=== PATIENT | female | born 1945 | race Caucasian/White ===

== ENCOUNTER 2021-06-01 18:01 | Inpatient (IN) | payer MEDICARE ==
[~2021-06-01] VITALS: Ht 162.6 cm; Wt 72.6 kg
[2021-06-01 18:40] LABS: HEMOGLOBIN 12.7 gm/dl (12.3-15.3); RED BLOOD COUNT 4.37 M/UL (4.00-5.10); WHITE BLOOD COUNT 15.8 K/UL (4.5-11.0)
[2021-06-02 04:49] LABS: HEMOGLOBIN 11.1 gm/dl (12.3-15.3); WHITE BLOOD COUNT 13.2 K/UL (4.5-11.0)
[2021-06-02 04:54] LABS: RED BLOOD COUNT 3.93 M/UL (4.00-5.10)
[2021-06-02 05:29] LABS: BUN/CREATININE RATIO 44 (0-10)
[2021-06-02 10:11] LABS: BUN/CREATININE RATIO 43 (0-10)
[2021-06-02 12:06] LABS: CANDIDA ALBICANS Not Detected (Negative); CANDIDA KRUSEI Not Detected (Negative); CANDIDA TROPICALIS Not Detected (Negative); ENTEROCOCCUS Not Detected (Negative); ESCHERICHIA COLI Not Detected (Negative); HAEMOPHILUS INFLUENZAE Not Detected (Negative); KLEBSIELLA OXYTOCA Not Detected (Negative); KPC-CARBAPENEM-RESISTANCE GENE Not Detected (Negative); PROTEUS Not Detected (Negative); PSEUDOMONAS AERUGINOSA Not Detected (Negative); SERRATIA MARCESANS Not Detected (Negative); STAPHYLOCOCCUS Not Detected (Negative); STAPHYLOCOCCUS AUREUS Not Detected (Negative); STREP AGALACTIAE (GROUP B) Not Detected (Negative); STREP PYOGENES (GROUP A) Not Detected (Negative); STREPTOCOCCUS Not Detected (Negative); mecA (METHICILLIN RESIST GENE Not Detected (Negative); vanA/B (VANCOMYCIN RESIST GENE Not Detected (Negative)
[2021-06-02 14:31] LABS: ACINETOBACTER BAUMANNII DETECTED (Negative); KLEBSIELLA PNEUMONIAE DETECTED (Negative)
[2021-06-02 14:51] LABS: BUN/CREATININE RATIO 36 (0-10)
[2021-06-03 02:34] LABS: HEMOGLOBIN 12.2 gm/dl (12.3-15.3); RED BLOOD COUNT 4.2 M/UL (4.00-5.10); WHITE BLOOD COUNT 11.4 K/UL (4.5-11.0)
[2021-06-03 03:10] LABS: BUN/CREATININE RATIO 31 (0-10)
[2021-06-04 03:58] LABS: HEMOGLOBIN 10.3 gm/dl (12.3-15.3); WHITE BLOOD COUNT 9.1 K/UL (4.5-11.0)
[2021-06-04 04:02] LABS: RED BLOOD COUNT 3.62 M/UL (4.00-5.10)
[2021-06-05 05:27] LABS: HEMOGLOBIN 10.4 gm/dl (12.3-15.3); RED BLOOD COUNT 3.68 M/UL (4.00-5.10); WHITE BLOOD COUNT 8.7 K/UL (4.5-11.0)
[2021-06-05 06:15] LABS: BUN/CREATININE RATIO 27 (0-10)
[2021-06-05] MEDS ORDERED: LANTUS INS100 UTS/M1 SC (11:13)
[2021-06-05] MEDS ORDERED: BETAPACE 80MG T80 MG PO (11:13)
[2021-06-05] MEDS ORDERED: AUGMENTIN 875-1 EACH PO (11:13)
[2021-06-05] MEDS ORDERED: HUMALOG 10100 UNITS/ SC (11:13)
[2021-06-05] MEDS ORDERED: ELIQUIS 5 MG TAB5 MG PO (11:13)
== END 2021-06-05 17:45 | disposition home health service (06) | DRG 871 ==
LOC: ER1 18:01 → CCU 21:36 → CDU 21:36 → PROG CARE 21:36 → CCU 06-02 05:47 → PROG CARE 06-02 16:18
PROVIDERS: Internal Medicine; Physician Assistant; ADMIT Internal Medicine
PROC: B24BZZZ Ultrasonography of Heart with Aorta (ICD-10-PCS; principal; 2021-06-03)
DX: A41.59 Other Gram-negative sepsis (principal); G93.41 Metabolic encephalopathy; N12 Tubulo-interstitial nephritis, not specified as acute or chronic; Z20.822 Contact with and (suspected) exposure to COVID-19; E87.0 Hyperosmolality and hypernatremia; R65.20 Severe sepsis without septic shock; E86.0 Dehydration; E87.6 Hypokalemia; E83.39 Other disorders of phosphorus metabolism; I48.0 Paroxysmal atrial fibrillation; R32 Unspecified urinary incontinence; E11.65 Type 2 diabetes mellitus with hyperglycemia; I08.1 Rheumatic disorders of both mitral and tricuspid valves; R63.1 Polydipsia; Z79.01 Long term (current) use of anticoagulants; Z79.4 Long term (current) use of insulin; Z86.73 Personal history of transient ischemic attack (TIA), and cerebral infarction without residual deficits; Z90.710 Acquired absence of both cervix and uterus; Z88.6 Allergy status to analgesic agent; Z83.3 Family history of diabetes mellitus; Z87.891 Personal history of nicotine dependence; Z79.82 Long term (current) use of aspirin
CPT/HCPCS: ECHO; 36415; 51702; 70450; 71045; 80048; 80053; 80061; 80202; 80307; 81001; 82009; 82140; 82800; 82962; 83036; 83605; 83735; 84100; 84132; 84439; 84443; 85025; 85027; 86140; 87040; 87077; 87086; 87150; 87186; 93005; 93306; 96374; 96375; 97161; 97166; 97530; 97535; 99285; J0692; J1160; J1650; J2060; J2185; J3370; J3480; J3486; J7030; J7070; Q9967

== ENCOUNTER → 2021-12-24 | Outpatient (CLI) | payer MEDICARE ==
[~2021-12-24] MED LIST: AUGMENTIN 875-1 EACH PO; BETAPACE 80MG T80 MG PO; ELIQUIS 5 MG TAB5 MG PO; HUMALOG 10100 UNITS/ SC; LANTUS INS100 UTS/M1 SC
== END ==
LOC: KOH-I 13:00
DX: M79.604 Pain in right leg (principal); L03.90 Cellulitis, unspecified; R50.9 Fever, unspecified
CPT/HCPCS: 93971

== ENCOUNTER → 2022-04-28 | Outpatient (CLI) | payer MEDICARE | LOC: HEART 5 07:40 | DX: I20.9 Angina pectoris, unspecified (principal) | CPT/HCPCS: 78452; A9502; J2785 ==